=== PATIENT | female | born 1945 | race Caucasian/White ===

== ENCOUNTER 2022-11-18 15:21 | Inpatient (IN) ==
[2022-11-18] MEDS ORDERED: IOPAMIDOL 100 ML BOTTLE IV ONE (15:22)
[2022-11-18 16:06] LABS: POC INR 1.3 (0.8-1.2); POC Pro Time 15.2 (11.9-14.5)
[2022-11-18 16:15] LABS: POC Calcium, Ionized 1.15 (1.16-1.32); POC Creatinine 0.7 (0.6-1.2); POC Potassium 3.5 (3.3-5.1)
--- NOTE | 2022-11-18 16:24 | Emergency Department Note ---
HPI General Chief complaint: Stroke Symptoms Stated complaint: stroke sym. Time Seen by Provider: 11/18/22 15:24 Source: patient Mode of arrival: wheelchair Limitations: no limitations History of Present Illness HPI Narrative: Narrative: 77-year-old female presents the emergency department with friends who are the main historians for the patient. Apparently the patient when they went to check on her today noticed that she was, acting funny and talking funny seem like it was hard for her to get outward and she is very confused says she does have a hard time. They said this is very abnormal for her she lives at home alone takes care of herself normally they only check on her about every 3 to 4 days. Last time anyone has checked on her or been around her the friend today has been at least 3 days so really unsure of when her last known well was. Patient is denying any other symptoms otherwise there is been no falls or trauma or any other symptoms. She says she has been taking her medications. Just that she is feels "foggy" today. Related Data Home Medications Medication Instructions Recorded Confirmed aspirin 81 mg tablet,delayed 81 mg PO Q72 01/20/18 11/18/22 release gqzjefqhkmz-xov-qhvsnnfh-vit 1 cap PO BID 09/30/19 11/18/22 [id number] 500 mg-333 mg-5 mg capsule cyanocobalamin (vitamin B-12) 1,000 mcg IM QMONTH 10/23/22 10/23/22 1,000 mcg/mL injection solution hydrochlorothiazide 25 mg tablet 12.5 mg PO QDAY 11/18/22 11/18/22 propranolol 40 mg tablet 20 mg PO BID blood pressure and 11/18/22 11/18/22 essential tremor Previous Rx's Medication Instructions Recorded valacyclovir 1 gram tablet 1,000 mg PO TID 7 days #21 tabs 03/26/21 tramadol 50 mg tablet 50 mg PO .COMPLEX PRN pain #20 tabs 03/29/21 meclizine 25 mg tablet 25 mg PO BID PRN dizziness #30 tabs 10/18/21 clotrimazole-betamethasone 1 1 applic topical .COMPLEX 2 weeks 08/15/22 %-0.05 % topical cream #45 grams ezetimibe 10 mg tablet (Zetia) 10 mg PO QDAY #90 tabs 09/18/22 Allergies Allergy/AdvReac Type Severity Reaction Status Date / Time Sulfa (Sulfonamide Allergy Mild Rash Verified 11/18/22 15:26 Antibiotics) MITCH Inhibitors AdvReac Mild Cough Verified 11/18/22 15:26 fat emulsions [From Soyacal] AdvReac Verified 11/18/22 20:36 soybean AdvReac Verified 11/18/22 20:36 Kruymgd-RFQ-TzI Reductase AdvReac Verified 11/18/22 22:59 Inhibitor Review of Systems ROS ROS Narrative: Narrative: All systems ED: reviewed and negative except as stated. [facility] Narrative Patient History Narrative: Narrative: Medical/Surgical/Family History All Active Problems (Updated 11/18/22 @ 17:02 by Pa Richardson DO) Acute cerebrovascular accident (CVA) (Acute) Wrist pain, left (Acute) Fatigue (Acute) Migraine headache without aura (Acute) Tinea pedis (Acute) Vertigo (Acute) Painful urination (Acute) Urinary frequency (Acute) History of shingles (Acute) Shingles outbreak (Acute) Vaginitis (Acute) Toe pain, left (Acute) UTI (urinary tract infection) (Acute) Flank pain (Acute) Contusion of rib on left side (Acute) Chronic low back pain (Chronic) Cox splints (Chronic) HTN (hypertension) (Chronic) Anxiety (Chronic) Anxiety with depression (Chronic) Hyperlipidemia (Chronic) Pedal edema (Chronic) Seborrheic keratosis (Chronic) Family history of heart disease (Chronic) Dizziness (Chronic) 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) Physical exam (Chronic) Postmenopausal (Chronic) Screening for malignant neoplasm of colon (Chronic) Hand laceration (Chronic) Rash (Chronic) History of appendectomy (Chronic) History of hysterectomy (Chronic) Hypertension (Chronic) Medical History (Updated 11/18/22 @ 17:02 by Pa Richardson DO) Allergies Anxiety Anxiety with depression Arthritis Chronic low back pain Dermatochalasis of eyelid of left eye Dizziness Family history of heart disease History of IBS HTN (hypertension) Hx of candidiasis Hx of mammogram (~2014) Hx: UTI (urinary tract infection) Hyperlipidemia Osteopenia Pedal edema Physical exam Postmenopausal Screening for malignant neoplasm of colon Seborrheic keratosis Cox splints Visit for review of DEXA scan (~02/2014) Surgical History Hx of cataract surgery (~2014) Hx of colonoscopy (~2013) Hx of total hysterectomy (~1992) Family History Mother , Age 93 Hx of congenital heart disease HTN (hypertension) Stroke Colon cancer Father , Age 70 Hx of congenital heart disease Stroke HTN (hypertension) Glaucoma Diabetes Sister , Age 60 Myocardial infarction Breast cancer Social History Alcohol Intake Frequency: does not drink Substance Use: does not use Exam Narrative Narrative: Narrative: Vital signs noted General: Awake. Alert. No distress. Skin: Warm. Dry. No rash. HEENT: NCAT. PERRL. EOMI. No conjunctivitis. Membranes moist. Neck: Good ROM. No meningeal signs. No stridor. Cardiovascular: RRR. Respiratory: No respiratory distress. Gastrointestinal: Abdomen soft. No tenderness. No distention. Back: No deformity. No CVAT. Musculoskeletal: No tenderness. No swelling. No erythema. No edema. Good peripheral pulses x 4 Neurological: No focal neurological deficits observed. NIH Stroke Scale/Score (NIHSS) from [email or web address] on 11/18/2022 All calculations should be rechecked by clinician prior to use RESULT SUMMARY: 5 points NIH Stroke Scale INPUTS: 1A: Level of consciousness > 0 = Alert; keenly responsive 1B: Ask month and age > 1 = 1 question right 1C: 'Blink eyes' & 'squeeze hands' > 0 = Performs both tasks 2: Horizontal extraocular movements > 0 = Normal 3: Visual orzoco > 0 = No visual loss 4: Facial palsy > 0 = Normal symmetry 5A: Left arm motor drift > 0 = No drift for 10 seconds 5B: Right arm motor drift > 0 = No drift for 10 seconds 6A: Left leg motor drift > 0 = No drift for 5 seconds 6B: Right leg motor drift > 0 = No drift for 5 seconds 7: Limb Ataxia > 2 = Ataxia in 2 Limbs 8: Sensation > 0 = Normal; no sensory loss 9: Language/aphasia > 1 = Mild-moderate aphasia: some obvious changes, without significant limitation 10: Dysarthria > 1 = Mild-moderate dysarthria: slurring but can be understood 11: Extinction/inattention > 0 = No abnormality General Limitations: no limitations Course Vital Signs Vital signs: Vital Signs Temperature 97.0 F 11/18/22 15:21 Pulse Rate 82 11/18/22 15:21 Respiratory Rate 18 11/18/22 15:21 Blood Pressure 169/82 11/18/22 15:21 Pulse Oximetry (%) 96 11/18/22 15:21 Oxygen Delivery Method Room Air 11/18/22 15:21 Temperature 98.5 F 11/18/22 20:30 Pulse Rate 65 11/18/22 21:17 Respiratory Rate 20 11/18/22 21:17 Blood Pressure 106/90 11/18/22 21:17 Pulse Oximetry (%) 99 11/18/22 21:17 Oxygen Delivery Method Room Air 11/18/22 21:17 MDM MDM Narrative Medical decision making narrative: Narrative: Patient is alert and oriented able to follow commands. Patient does not meet criteria for code stroke is really unsure when her last known well as it would be about 3 days ago based on what we know. She has obvious stroke findings with some ataxia dysarthria and a little bit of aphasia. She does have NIH of 5. Because of her findings of actually more worried about a posterior stroke or possibly cerebellar stroke due to this I Jolanta go ahead and order an MRI. I was can order CT noncontrast first just to be sure there is no hemorrhage but MRI called and said they are able to get it done before they are able to get the CT done so went ahead and canceled the CT without contrast. Also got basic labs including CBC LFTs, chemistry and those are still pending at this time. Patient's blood sugar was normal. I did personally review and interpret the labs there is no acute findings based on the labs as they are unremarkable including CBC LFTs and chemistry. I did personally review and look over the MRI myself and I saw no signs of hemorrhage or major strokes based on my personal interpretation. The official radiology in terpretation came back and I did review that and that actually showed a small acute nonhemorrhagic infarct in the left occipital lobe as well as moderate diffuse white matter disease above the tentorium consistent with age-related ischemia or degeneration. Due to these findings I think patient does need to be admitted for further evaluation and more resources for her acute stroke. Again we do not know when she was last known well so we are unable to use tPA at this time. And this is not showing any signs of large vessel occlusion so I do not think neuro IR is warranted at this time. I spoke with the hospitalist Dr. Garcia who has agreed to admit the patient but he is requesting that we order a CTA head and neck to be sure there is no blockages which is reasonable and he will follow-up the results. Patient is admitted in fair condition ECG rhythm strip interpretation: ECG rhythm strip was personally interpreted by myself as normal sinus rhythm with no ectopy EKG: EKG done at 1545 interpreted by myself as a sinus rhythm, NH interval 176, QRS 95 At a rate of 73, QTc 458. No acute ST changes no acute T wave changes no other signs of ischemia. No signs of hypertrophy, heart strain, heart block. No WPW/Brugada/HOCM. Impression is normal sinus EKG with no ischemia Lab Data 11/18/22 16:00 Labs: Lab Results 11/18/22 11/18/22 11/18/22 Range/Units 16:00 16:00 16:00 WBC 6.0 (4.5-11.0) K/mcL RBC 4.54 (3.59-5.38) M/mcL Hgb 14.4 (11.2-15.7) g/dL Hct 42.3 (34.1-44.9) % POC Hct (36-48) MCV 93.2 (80.0-100.0) fL MCH 31.7 (26.0-34.0) pg MCHC 34.0 (31.0-36.0) g/dL RDW 14.0 (11.5-14.5) % Plt Count 250 (140-440) K/mcL MPV 10.1 (8.8-12.5) fL Immature Gran % (Auto) 0.3 (0.0-0.5) % Neut % (Auto) 62.4 (38.0-78.0) % Lymph % (Auto) 29.2 (15.5-49.0) % [place] % (Auto) 7.1 (1.0-12.0) % Eos % (Auto) 0.5 (0.0-7.0) % Baso % (Auto) 0.5 (0.0-2.0) % Lymph # (Auto) 1.76 (1.50-4.80) K/mcL [place] # (Auto) 0.43 (0.10-0.90) K/mcL Eos # (Auto) 0.03 (0.00-0.70) K/mcL Baso # (Auto) 0.03 (0.00-0.30) K/mcL Immature Gran # 0.02 (0.00-0.05) K/mcl Absolute Neutrophils 3.76 (1.80-8.00) K/mcL POC PT (11.9-14.5) POC INR (0.8-1.2) APTT 26.6 (20.0-37.0) sec POC Sodium (133-145) POC Potassium (3.3-5.1) POC Chloride (96-108) POC Total CO2 (22-30) POC BUN (6-20) POC Creatinine (0.6-1.2) POC Glucose (70-105) POC WB Ioniz Calcium (1.16-1.32) Total Bilirubin 0.7 (0.1-1.0) mg/dL Direct Bilirubin < 0.2 (0-0.3) mg/dL AST 29 (<32) U/L ALT 13 (<40) U/L Alkaline Phosphatase 65 (39-117) U/L Total Protein 6.3 (5.9-8.4) gm/dL Albumin 3.7 (3.2-5.2) gm/dL Globulin 2.6 (2.2-3.7) gm/dL Triglycerides (<150) mg/dL Cholesterol (<200) mg/dL LDL Cholesterol, Calc (<100) mg/dL Non-HDL Cholesterol (<130) mg/dL HDL Cholesterol (>40) mg/dL Urine Color Urine Appearance (Clear) Urine pH (5.0-9.0) Ur Specific [place] (1.000-1.035) Urine Protein (Negative) mg/dL Urine Glucose (UA) (Negative) mg/dL Urine Ketones (Negative) mg/dL Urine Occult Blood (Negative) mg/dL Urine Nitrate (Negative) Urine Bilirubin (Negative) mg/dL Urine Urobilinogen mg/dL Ur Leukocyte Esterase (Negative) /uL Urine RBC (0-3) /hpf Urine WBC (0-4) /hpf Ur Squamous Epith Cells (0-4) /hpf Urine Bacteria (0) /hpf Urine Mucus (None) /hpf Ur Culture Indicated? POC Troponin I (0.00-0.08) 11/18/22 11/18/22 11/18/22 Range/Units 16:00 16:01 16:02 WBC (4.5-11.0) K/mcL RBC (3.59-5.38) M/mcL Hgb (11.2-15.7) g/dL Hct (34.1-44.9) % POC Hct 43.0 (36-48) MCV (80.0-100.0) fL MCH (26.0-34.0) pg MCHC (31.0-36.0) g/dL RDW (11.5-14.5) % Plt Count (140-440) K/mcL MPV (8.8-12.5) fL Immature Gran % (Auto) (0.0-0.5) % Neut % (Auto) (38.0-78.0) % Lymph % (Auto) (15.5-49.0) % Victoria % (Auto) (1.0-12.0) % Eos % (Auto) (0.0-7.0) % Baso % (Auto) (0.0-2.0) % Lymph # (Auto) (1.50-4.80) K/mcL Victoria # (Auto) (0.10-0.90) K/mcL Eos # (Auto) (0.00-0.70) K/mcL Baso # (Auto) (0.00-0.30) K/mcL Immature Gran # (0.00-0.05) K/mcl Absolute Neutrophils (1.80-8.00) K/mcL POC PT 15.2 H (11.9-14.5) POC INR 1.3 H (0.8-1.2) APTT (20.0-37.0) sec POC Sodium 137 (133-145) POC Potassium 3.5 (3.3-5.1) POC Chloride 101 (96-108) POC Total CO2 26.0 (22-30) POC BUN 16 (6-20) POC Creatinine 0.7 (0.6-1.2) POC Glucose 126 H (70-105) POC WB Ioniz Calcium 1.15 L (1.16-1.32) Total Bilirubin (0.1-1.0) mg/dL Direct Bilirubin (0-0.3) mg/dL AST (<32) U/L ALT (<40) U/L Alkaline Phosphatase (39-117) U/L Total Protein (5.9-8.4) gm/dL Albumin (3.2-5.2) gm/dL Globulin (2.2-3.7) gm/dL Triglycerides 92 (<150) mg/dL Cholesterol 239 H (<200) mg/dL LDL Cholesterol, Calc 149 H (<100) mg/dL Non-HDL Cholesterol 167 H (<130) mg/dL HDL Cholesterol 72 (>40) mg/dL Urine Color Urine Appearance (Clear) Urine pH (5.0-9.0) Ur Specific [place] (1.000-1.035) Urine Protein (Negative) mg/dL Urine Glucose (UA) (Negative) mg/dL Urine Ketones (Negative) mg/dL Urine Occult Blood (Negative) mg/dL Urine Nitrate (Negative) Urine Bilirubin (Negative) mg/dL Urine Urobilinogen mg/dL Ur Leukocyte Esterase (Negative) /uL Urine RBC (0-3) /hpf Urine WBC (0-4) /hpf Ur Squamous Epith Cells (0-4) /hpf Urine Bacteria (0) /hpf Urine Mucus (None) /hpf Ur Culture Indicated? POC Troponin I (0.00-0.08) 11/18/22 11/18/22 Range/Units 16:04 16:40 WBC (4.5-11.0) K/mcL RBC (3.59-5.38) M/mcL Hgb (11.2-15.7) g/dL Hct (34.1-44.9) % POC Hct (36-48) MCV (80.0-100.0) fL MCH (26.0-34.0) pg MCHC (31.0-36.0) g/dL RDW (11.5-14.5) % Plt Count (140-440) K/mcL MPV (8.8-12.5) fL Immature Gran % (Auto) (0.0-0.5) % Neut % (Auto) (38.0-78.0) % Lymph % (Auto) (15.5-49.0) % Victoria % (Auto) (1.0-12.0) % Eos % (Auto) (0.0-7.0) % Baso % (Auto) (0.0-2.0) % Lymph # (Auto) (1.50-4.80) K/mcL [place] # (Auto) (0.10-0.90) K/mcL Eos # (Auto) (0.00-0.70) K/mcL Baso # (Auto) (0.00-0.30) K/mcL Immature Gran # (0.00-0.05) K/mcl Absolute Neutrophils (1.80-8.00) K/mcL POC PT (11.9-14.5) POC INR (0.8-1.2) APTT (20.0-37.0) sec POC Sodium (133-145) POC Potassium (3.3-5.1) POC Chloride (96-108) POC Total CO2 (22-30) POC BUN (6-20) POC Creatinine (0.6-1.2) POC Glucose (70-105) POC WB Ioniz Calcium (1.16-1.32) Total Bilirubin (0.1-1.0) mg/dL Direct Bilirubin (0-0.3) mg/dL AST (<32) U/L ALT (<40) U/L Alkaline Phosphatase (39-117) U/L Total Protein (5.9-8.4) gm/dL Albumin (3.2-5.2) gm/dL Globulin (2.2-3.7) gm/dL Triglycerides (<150) mg/dL Cholesterol (<200) mg/dL LDL Cholesterol, Calc (<100) mg/dL Non-HDL Cholesterol (<130) mg/dL HDL Cholesterol (>40) mg/dL Urine Color Yellow Urine Appearance Hazy A (Clear) Urine pH 8.0 (5.0-9.0) Ur Specific [place] 1.016 (1.000-1.035) Urine Protein Negative (Negative) mg/dL Urine Glucose (UA) Negative (Negative) mg/dL Urine Ketones 20 A (Negative) mg/dL Urine Occult Blood Negative (Negative) mg/dL Urine Nitrate Negative (Negative) Urine Bilirubin Negative (Negative) mg/dL Urine Urobilinogen Negative mg/dL Ur Leukocyte Esterase 25 A (Negative) /uL Urine RBC 0 (0-3) /hpf Urine WBC 40 H (0-4) /hpf Ur Squamous Epith Cells 0 (0-4) /hpf Urine Bacteria None (0) /hpf Urine Mucus Few A (None) /hpf Ur Culture Indicated? yes POC Troponin I < 0.02 (0.00-0.08) Discharge Plan Patient/Caregiver Discharge Instructions Pt seen by [facility] CUSTODIAN/PA only: No Clinical Impression: Acute cerebrovascular accident (CVA) Patient Disposition: Xfer As Inpt ([facility]) Discharge Date/Time: 11/18/22 19:58
--- NOTE | 2022-11-18 16:52 | Magnetic Resonance Report ---
History: Ataxia and stroke symptoms TECHNIQUE: Stroke protocol was performed. FINDINGS: There is a small subcortical acute infarct located posteriorly in the left occipital lobe. It measures 5 x 7 mm in size. This is located above the level of the visual cortex. No other infarct is present. There is no hemorrhage or mass effect. T2 FLAIR images reveal multiple high signal lesions in the centrum semiovale, predominantly involving the frontal and parietal lobes. There is also involvement in the mo radiata. They have no restricted diffusion or mass effect. There is normal signal in the basal ganglia, brainstem and cerebellum. No abnormal extra-axial fluid collection is present. Ventricles are normal in size. IMPRESSION: Small acute nonhemorrhagic infarct in the left occipital lobe. Moderate diffuse white matter disease above the tentorium, consistent with age-related ischemia or degeneration. Dr. Richardson was called with the report Interpreted and Authenticated by: Gerry Zayas 11/18/22
[2022-11-18 17:02] LABS: Basophils # (Auto) 0.03 K/mcL (0.00-0.30); Basophils % (Auto) 0.5 % (0.0-2.0); Eosinophils # (Auto) 0.03 K/mcL (0.00-0.70); Eosinophils % (Auto) 0.5 % (0.0-7.0); Hematocrit 42.3 % (34.1-44.9); Hemoglobin 14.4 g/dL (11.2-15.7); Lymphocytes # (Auto) 1.76 K/mcL (1.50-4.80); Lymphocytes % (Auto) 29.2 % (15.5-49.0); Mean Cell Volume 93.2 fL (80.0-100.0); Mean Platelet Volume 10.1 fL (8.8-12.5); Monocytes # (Auto) 0.43 K/mcL (0.10-0.90); Monocytes % (Auto) 7.1 % (1.0-12.0); Neutrophils % (Auto) 62.4 % (38.0-78.0); Platelet Count 250 K/mcL (140-440); RBC 4.54 M/mcL (3.59-5.38)
[2022-11-18] MEDS ORDERED: ASPIRIN 81 MG TAB.CHEW CHEWED ONE (17:14)
[2022-11-18 17:23] LABS: ALT/SGPT 13 U/L (<40); AST/SGOT 29 U/L (<32); Albumin 3.7 gm/dL (3.2-5.2); Alkaline Phosphatase 65 U/L (39-117); Bilirubin,Direct < 0.2 mg/dL (0-0.3); Bilirubin,Total 0.7 mg/dL (0.1-1.0); Globulin 2.6 gm/dL (2.2-3.7)
[2022-11-18 17:57] LABS: Appearance,Urine HAZY (Clear); Bilirubin,Urine Negative (Negative); Color,Urine YELLOW; Culture Indicated,Urine yes; Glucose,Urine (UA) Negative (Negative); Ketones,Urine 20 mg/dL (Negative); Leukocyte Esterase,Urine 25 /uL (Negative); Mucus,Urine FEW /hpf; Nitrate,Urine Negative (Negative); Protein,Urine Negative (Negative); Specific Gravity,Urine 1.016 (1.000-1.035); Urine Blood Negative (Negative); Urine RBC 0 /hpf (0-3); Urine Squamous Epithelial Cell 0 /hpf (0-4); Urine WBC 40 /hpf (0-4); Urobilinogen,Urine Negative
--- NOTE | 2022-11-18 18:21 | Cat Scan Report ---
History: Left occipital infarct, ataxia TECHNIQUE: Following injection of intravenous nonionic contrast, arterial phase images were acquired from the ascending aorta to the top of the head. Sagittal, coronal and 3-D reformatted images were created. The radiation exposure was limited using dose reduction technology. FINDINGS: NECK: The aorta is normal in caliber. There is small amount of plaque along the wall of the arch and plaque at the origin of the left subclavian artery. There is no stenosis of the subclavian. Common carotids are normal. Small amount of eccentric plaque is present in the proximal portions of both left and right internal carotids. These are not causing stenosis and there is no evidence of ulcerated plaque. The distal portions of both internal carotids are normal. The vertebral arteries are normal and symmetric. Lung apices are clear. The thyroid is heterogeneous with several small scattered nodules. Brain: The petrous and cavernous portions of both internal carotids are normal with no stenosis or plaque formation. Supraclinoid portions of both internal carotids are normal. The anterior and middle cerebral arteries are normal and symmetric. There is a small patent anterior communicating artery. I also has a small posterior communicating artery and the right side but not on the left. Peripheral branches of the anterior and middle cerebral arteries are normal. The vertebral arteries and basilar artery are normal in caliber. There is normal filling of the posterior inferior, anterior inferior and superior cerebellar arteries. Posterior cerebral arteries are normal and symmetric. There is no intracranial vascular occlusion, stenosis or evidence of vasculitis. No aneurysm or vascular malformation are present. The prior MRI revealed a small subcortical infarct in the left occipital lobe. No abnormal enhancement is present at this site. IMPRESSION: Normal CT angiogram of the head and neck Dr. Richardson was called with the report Interpreted and Authenticated by: Gerry Zayas 11/18/22
--- NOTE | 2022-11-18 18:28 | Internal Med History&Physical ---
HPI History of Present Illness Patient information: Note initiated : 11/18/22 at 6:26 pm Service Date, if different from initiated Date: [] Patient: Antonella Padilla a 77 y/o F admitted on for stroke sym.. Chief Complaint: [] History of present illness: Ms. Padilla is a 77 year old F Presents today with altered speech and confusion. Per friends her speech this morning seemed delayed and she did not make sense when she spoke. Patient able to report that the symptoms started this morning but unsure of what time, last known normal is unknown. Her friends typically see her every 3 to 4 days but had not seen her since September. She takes an aspirin every 3 days as precautionary because a family member of heart disease. Per the friends her expressive aphasia has improved dramatically since I saw her early afternoon. Patient states that she went to bed feeling fine but this morning she says she just could not function and says she was very weak but could not give any further description or details of how she felt. She denies any numbness tingling in any specific arm or leg. No chest pain shortness of breath. She has had mild headache but nothing significant She denies any visual deficits. CTA head and neck unremarkable. EKG sinus rhythm Review of Systems: Pertinent positives as above. Denies fever/chills/nausea/vomiting/chest or abdominal pain/cough/dyspnea/diarrhea. Remaining 10 point review of system reviewed negative PHYSICAL EXAM General: Alert, Awake, No acute Distress Eyes/N/T: EOMI, no scleral icterus, PERRL, visual orozco intact Head/Neck: neck supple, full ROM, normocephalic atraumatic CV: RRR, No murmurs, normal s1/s2 Pulm: Clear b/l, no wheezing/rhonchi/rales, no respiratory distress Abd: soft, nontender, +BS x4 Ext: no clubbing/cyanosis/edema, nontender Neuro: Alert, very mild expressive aphasia at this point, moves all extremities, sensations intact b/l upper/lower, follows commands, no pronator drift, symmetrical face, no slurring Psychiatric: Skin: warm/dry, normal color PFSH PFSH All Active Problems (Updated 11/18/22 @ 17:02 by Pa Richardson DO) Acute cerebrovascular accident (CVA) (Acute) Wrist pain, left (Acute) Fatigue (Acute) Migraine headache without aura (Acute) Tinea pedis (Acute) Vertigo (Acute) Painful urination (Acute) Urinary frequency (Acute) History of shingles (Acute) Shingles outbreak (Acute) Vaginitis (Acute) Toe pain, left (Acute) UTI (urinary tract infection) (Acute) Flank pain (Acute) Contusion of rib on left side (Acute) Chronic low back pain (Chronic) Cox splints (Chronic) HTN (hypertension) (Chronic) Anxiety (Chronic) Anxiety with depression (Chronic) Hyperlipidemia (Chronic) Pedal edema (Chronic) Seborrheic keratosis (Chronic) Family history of heart disease (Chronic) Dizziness (Chronic) 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) Physical exam (Chronic) Postmenopausal (Chronic) Screening for malignant neoplasm of colon (Chronic) Hand laceration (Chronic) Rash (Chronic) History of appendectomy (Chronic) History of hysterectomy (Chronic) Hypertension (Chronic) Medical History (Updated 11/18/22 @ 17:02 by Pa Richardson DO) Allergies Anxiety Anxiety with depression Arthritis Chronic low back pain Dermatochalasis of eyelid of left eye Dizziness Family history of heart disease History of IBS HTN (hypertension) Hx of candidiasis Hx of mammogram (~2014) Hx: UTI (urinary tract infection) Hyperlipidemia Osteopenia Pedal edema Physical exam Postmenopausal Screening for malignant neoplasm of colon Seborrheic keratosis Cox splints Visit for review of DEXA scan (~02/2014) Surgical History Hx of cataract surgery (~2014) Hx of colonoscopy (~2013) Hx of total hysterectomy (~1992) Family History Mother , Age 93 Hx of congenital heart disease HTN (hypertension) Stroke Colon cancer Father , Age 70 Hx of congenital heart disease Stroke HTN (hypertension) Glaucoma Diabetes Sister , Age 60 Myocardial infarction Breast cancer Social History marital status: occupational status: retired alcohol intake frequency: does not drink substance use type: does not use MEDS/ALLERGIES Home Medications and Allergies Home Medications Medication Instructions Recorded Confirmed Type aspirin 81 mg tablet,delayed 81 mg PO Q72 01/20/18 10/23/22 History release rxogjcydfoa-bjv-gtrmaxkp-vit 1 cap PO BID 09/30/19 10/23/22 History C-Mn-hrb21 500 mg-333 mg-5 mg capsule valacyclovir 1 gram tablet 1,000 mg PO TID 7 days #21 tabs 03/26/21 10/23/22 Rx tramadol 50 mg tablet 50 mg PO .COMPLEX PRN pain #20 tabs 03/29/21 10/23/22 Rx meclizine 25 mg tablet 25 mg PO BID PRN dizziness #30 tabs 10/18/21 10/23/22 Rx clotrimazole-betamethasone 1 1 applic topical .COMPLEX 2 weeks 08/15/22 10/23/22 Rx %-0.05 % topical cream #45 grams ezetimibe 10 mg tablet (Zetia) 10 mg PO QDAY #90 tabs 09/18/22 10/23/22 Rx propranolol 40 mg tablet See Rx Instructions .Route 09/18/22 10/23/22 Rx .COMPLEX #90 tabs cyanocobalamin (vitamin B-12) 1,000 mcg IM QMONTH 10/23/22 10/23/22 History 1,000 mcg/mL injection solution hydrochlorothiazide 25 mg tablet 25 mg PO QDAY #90 tabs 10/23/22 10/23/22 Rx Allergies Allergy/AdvReac Type Severity Reaction Status Date / Time Sulfa (Sulfonamide Allergy Mild Rash Verified 11/18/22 15:26 Antibiotics) MITCH Inhibitors AdvReac Mild Cough Verified 11/18/22 15:26 EXAM Constitutional Vitals: Temp Pulse Resp BP Pulse Ox O2 Del Method 97.0 F 67 16 168/88 99 Room Air 11/18/22 15:21 11/18/22 18:06 11/18/22 18:06 11/18/22 18:01 11/18/22 18:06 11/18/22 15:38 DATA Data Completed and Pending Labs: Labs from last 24 hours 11/18/22 11/18/22 11/18/22 16:40 16:04 16:02 WBC RBC Hgb Hct POC Hct 43.0 MCV MCH MCHC RDW Plt Count MPV Immature Gran % (Auto) Neut % (Auto) Lymph % (Auto) [place] % (Auto) Eos % (Auto) Baso % (Auto) Lymph # (Auto) [place] # (Auto) Eos # (Auto) Baso # (Auto) Immature Gran # Absolute Neutrophils POC PT POC INR APTT POC Sodium 137 POC Potassium 3.5 POC Chloride 101 POC Total CO2 26.0 POC BUN 16 POC Creatinine 0.7 POC Glucose 126 H POC WB Ioniz Calcium 1.15 L Total Bilirubin Direct Bilirubin AST ALT Alkaline Phosphatase Total Protein Albumin Globulin Urine Color Yellow Urine Appearance Hazy A Urine pH 8.0 Ur Specific [place] 1.016 Urine Protein Negative Urine Glucose (UA) Negative Urine Ketones 20 A Urine Occult Blood Negative Urine Nitrate Negative Urine Bilirubin Negative Urine Urobilinogen Negative Ur Leukocyte Esterase 25 A Urine RBC 0 Urine WBC 40 H Ur Squamous Epith Cells 0 Urine Bacteria None Urine Mucus Few A Ur Culture Indicated? yes POC Troponin I < 0.02 11/18/22 11/18/22 11/18/22 16:01 16:00 16:00 WBC RBC Hgb Hct POC Hct MCV MCH MCHC RDW Plt Count MPV Immature Gran % (Auto) Neut % (Auto) Lymph % (Auto) [place] % (Auto) Eos % (Auto) Baso % (Auto) Lymph # (Auto) [place] # (Auto) Eos # (Auto) Baso # (Auto) Immature Gran # Absolute Neutrophils POC PT 15.2 H POC INR 1.3 H APTT 26.6 POC Sodium POC Potassium POC Chloride POC Total CO2 POC BUN POC Creatinine POC Glucose POC WB Ioniz Calcium Total Bilirubin 0.7 Direct Bilirubin < 0.2 AST 29 ALT 13 Alkaline Phosphatase 65 Total Protein 6.3 Albumin 3.7 Globulin 2.6 Urine Color Urine Appearance Urine pH Ur Specific [place] Urine Protein Urine Glucose (UA) Urine Ketones Urine Occult Blood Urine Nitrate Urine Bilirubin Urine Urobilinogen Ur Leukocyte Esterase Urine RBC Urine WBC Ur Squamous Epith Cells Urine Bacteria Urine Mucus Ur Culture Indicated? POC Troponin I 11/18/22 16:00 WBC 6.0 RBC 4.54 Hgb 14.4 Hct 42.3 POC Hct MCV 93.2 MCH 31.7 MCHC 34.0 RDW 14.0 Plt Count 250 MPV 10.1 Immature Gran % (Auto) 0.3 Neut % (Auto) 62.4 Lymph % (Auto) 29.2 [place] % (Auto) 7.1 Eos % (Auto) 0.5 Baso % (Auto) 0.5 Lymph # (Auto) 1.76 [place] # (Auto) 0.43 Eos # (Auto) 0.03 Baso # (Auto) 0.03 Immature Gran # 0.02 Absolute Neutrophils 3.76 POC PT POC INR APTT POC Sodium POC Potassium POC Chloride POC Total CO2 POC BUN POC Creatinine POC Glucose POC WB Ioniz Calcium Total Bilirubin Direct Bilirubin AST ALT Alkaline Phosphatase Total Protein Albumin Globulin Urine Color Urine Appearance Urine pH Ur Specific [place] Urine Protein Urine Glucose (UA) Urine Ketones Urine Occult Blood Urine Nitrate Urine Bilirubin Urine Urobilinogen Ur Leukocyte Esterase Urine RBC Urine WBC Ur Squamous Epith Cells Urine Bacteria Urine Mucus Ur Culture Indicated? POC Troponin I A/P Narrative A/P Narrative: A: *Acute ischemic CVA (left occipital lobe): -CTA head/neck no significant stenosis *Generalized weakness/deconditioning: *HTN/HLD: *chronic LBP: *Anxiety: P: -DAPT/Statin -lipid panel -permissive HTN 24-48hrs, hold BP meds / diuretics for now -IVF -UA -echo pending -Neurochecks -Home medication reconciliation -PT/OT/ST -CM for placement -ppx: Lovenox /PPI Time Spent With Patient Time: Total time spent is greater than 50% in coordination of care (as documented) at patient's floor/unit and/or counseling patient: Initial: Total time with patient: 75 - 90 minutes QUALITY Stroke Symptom Onset Unknown: Yes
[2022-11-18] MEDS ORDERED: ACETAMINOPHEN 325 MG TABLET PO PRN (20:13)
[2022-11-18] MEDS ORDERED: SENNOSIDES 1 TABLET PO PRN (20:13)
[2022-11-18] MEDS ORDERED: POLYETHYLENE GLYCOL 3350 17 GM PACKET PO PRN (20:13)
[2022-11-18] MEDS ORDERED: POTASSIUM CHLORIDE 40 MEQ in DEXTROSE 5% IN WATER 500 ML IV PRN (20:13)
[2022-11-18] MEDS ORDERED: ONDANSETRON 4 MG/2 ML VIAL IV PRN (20:13)
[2022-11-18] MEDS ORDERED: 0.9 % SODIUM CHLORIDE 1,000 ML IV ONE (20:13)
[2022-11-18] MEDS ORDERED: POTASSIUM CHLORIDE 20 MEQ TABLET PO PRN ×2 (20:13)
[2022-11-18] MEDS ORDERED: MAGNESIUM SULFATE 2 GM/50 ML BAG IV PRN (20:13)
[2022-11-18] MEDS ORDERED: IPRATROPIUM/ALBUTEROL 3 ML AMPUL.NEB NEB PRN (20:13)
[2022-11-18 20:50] LABS: HDL Cholesterol 72 mg/dL (>40); LDL Cholesterol,Calculated 149 mg/dL (<100); Non-HDL Cholesterol 167 mg/dL (<130); Triglycerides 92 mg/dL (<150)
[2022-11-18] MEDS: DOCUSATE SODIUM 100 MG CAPSULE PO SCH (20:52)
[2022-11-18] MEDS: CLOPIDOGREL 75 MG TABLET PO SCH (20:52)
[2022-11-18] MEDS: 0.9 % SODIUM CHLORIDE 10 ML SYRINGE IV SCH (20:53)
[2022-11-18] MEDS ORDERED: ATORVASTATIN 40 MG TABLET ONE (22:47)
[2022-11-18] MEDS: ATORVASTATIN 40 MG TABLET PO SCH ×2 (22:48→22:55)
[2022-11-19] MEDS: 0.9 % SODIUM CHLORIDE 10 ML SYRINGE IV SCH ×3 (05:05→20:28)
--- NOTE | 2022-11-19 07:23 | Internal Med Progress Note ---
SUBJECTIVE Subjective Patient information: Note initiated : 11/19/22 at 7:16 am Service Date, if different from initiated Date: [] Patient: Antonella Padilla a 77 y/o F admitted on 11/18/22 for stroke . Chief Complaint: [] Interval history: History of present illness: Ms. Padilla is a 77 year old F Presents today with altered speech and confusion. Per friends her speech this morning seemed delayed and she did not make sense when she spoke. Patient able to report that the symptoms started this morning but unsure of what time, last known normal is unknown. Her friends typically see her every 3 to 4 days but had not seen her since September. She takes an aspirin every 3 days as precautionary because a family member of heart disease. Per the friends her expressive aphasia has improved dramatically since I saw her early afternoon. Patient states that she went to bed feeling fine but this morning she says she just could not function and says she was very weak but could not give any further description or details of how she felt. She denies any numbness tingling in any specific arm or leg. No chest pain shortness of breath. She h as had mild headache but nothing significant She denies any visual deficits. CTA head and neck unremarkable. EKG sinus rhythm 11/19 Patient feeling much better today. She says her mind is much more clear almost baseline. Friends at bedside. We will work with PT today and awaiting echo results. Patient refused statin medications and she had a bad reaction to it in the past. We will start her Zetia. Review of Systems: Pertinent positives as above. Denies fever/chills/nausea/vomiting/chest or abdominal pain/cough/dyspnea/diarrhea. PHYSICAL EXAM General: Alert, Awake, No acute Distress Eyes/N/T: EOMI, no scleral icterus, Head/Neck: neck supple, full ROM, CV: RRR, No murmurs, Pulm: Clear b/l, no wheezing/rhonchi/rales, no respiratory distress Abd: soft, nontender, +BS x4 Ext: no clubbing/cyanosis/edema, nontender Neuro: Alert, moves all extremities, sensations intact b/l upper/lower, follows commands, no pronator drift, symmetrical face, no slurring Psychiatric: Skin: warm/dry, normal color Constitutional Vitals: Vital Signs Temp Pulse Resp BP Pulse Ox O2 Del Method 98.7 F 67 14 129/63 95 Room Air 11/19/22 04:01 11/19/22 04:01 11/19/22 04:01 11/19/22 04:01 11/19/22 04:01 11/19/22 04:01 Period Temp Pulse Resp BP Sys/Jennings Pulse Ox O2 Del Method O2 Flow Rate Last 24 Hr 97.0 F-98.8 F 65-82 10-20 106-188/59-105 95-99 Room Air-Room Air Intake and Output 11/18/22 11/19/22 11/19/22 19:59 03:59 11:59 Intake Total 360 Output Total 650 Balance -290 Weight 63.049 kg 62.823 kg Intake & Output: Intake & Output 11/18/22 11/19/22 11/19/22 19:59 03:59 11:59 Intake Total 360 Output Total 650 Balance -290 Weight 63.049 kg 62.823 kg Intake: Oral 360 Output: Void Amount 650 Other: Urine Appearance Clear Urine Color Yellow Urine Odor Normal OBJ DATA Labs 11/18/22 16:00 Labs: Abnormal Lab Results 11/18/22 11/18/22 11/18/22 16:40 16:02 16:01 POC PT 15.2 H POC INR 1.3 H POC Glucose 126 H POC WB Ioniz Calcium 1.15 L Cholesterol LDL Cholesterol, Calc Non-HDL Cholesterol Urine Appearance Hazy A Urine Ketones 20 A Ur Leukocyte Esterase 25 A Urine WBC 40 H Urine Mucus Few A 11/18/22 16:00 POC PT POC INR POC Glucose POC WB Ioniz Calcium Cholesterol 239 H LDL Cholesterol, Calc 149 H Non-HDL Cholesterol 167 H Urine Appearance Urine Ketones Ur Leukocyte Esterase Urine WBC Urine Mucus Meds: Medications Acetaminophen (Acetaminophen 325 Mg Tablet) 650 mg PO Q6HP PRN; Protocol PRN Reason: Per Pain Protocol/Fever > 101 Albuterol/Ipratropium (Ipratropium/Albuterol 3 Ml Ampul.Neb) 3 ml NEB Q4HP PRN PRN Reason: Shortness Of Breath Aspirin (Aspirin 325 Mg Enteric Coated Tablet) 81 mg PO DAILY [facility] Atorvastatin Calcium (Atorvastatin 40 Mg Tablet) 80 mg PO HS [facility] Last Admin: 11/18/22 22:55 Dose: Not Given Clopidogrel Bisulfate (Clopidogrel 75 Mg Tablet) 75 mg PO DAILY [facility] Last Admin: 11/18/22 20:52 Dose: 75 mg Docusate Sodium (Docusate Sodium 100 Mg Capsule) 100 mg PO BID [facility] Last Admin: 11/18/22 20:52 Dose: Not Given Enoxaparin Sodium (Enoxaparin 40 Mg/0.4 Ml Syringe) 40 mg SQ DAILY [facility] Potassium Chloride 40 meq/ (Dextrose) 520 mls @ 130 mls/hr IV UD PRN PRN Reason: Potassium < 3 Magnesium Sulfate (Magnesium Sulfate) 2 gm in 50 mls @ 50 mls/hr IV UD PRN PRN Reason: Magnesium </= 1.6 Ondansetron HCl (Ondansetron 4 Mg/2 Ml Vial) 4 mg IV Q4HP PRN PRN Reason: Nausea And Vomiting Pantoprazole Sodium (Pantoprazole 40 Mg Tablet) 40 mg PO QAMAC [facility] Polyethylene Glycol (Polyethylene Glycol 3350 17 Gm Packet) 17 gm PO DAILYP PRN PRN Reason: Constipation Potassium Chloride (Potassium Chloride 20 Meq Tablet) 40 meq PO UD PRN PRN Reason: Potssium is 3-3.5 Potassium Chloride (Potassium Chloride 20 Meq Tablet) 40 meq PO UD PRN PRN Reason: Potassium < 3 Senna (Sennosides 1 Tablet) 2 tab PO DAILYP PRN PRN Reason: Constipation Sodium Chloride (0.9 % Sodium Chloride 10 Ml Syringe) 10 ml IV Q8 [facility] Last Admin: 11/19/22 05:05 Dose: 10 ml A/P Narrative A/P Narrative: A: *Acute ischemic CVA (left occipital lobe above visual cortex): with expressive aphasia, improved -CTA head/neck no significant stenosis *Generalized weakness/deconditioning: *?UTI: pending UC *HTN/HLD: *Essential Tremor: *chronic LBP: *Anxiety: P: -DAPT, Statin (refused statin stating bad reaction in past, added to allergy list, start home zetia) -permissive HTN 24-48hrs, hold BP meds / diuretics for now -IVF finish -UC pending -echo pending -Neurochecks -PT(awaiting eval)/OT -CM for placement -ppx: Lovenox /PPI Time Spent With Patient Time: Total time spent is greater than 50% in coordination of care (as documented) at patient's floor/unit and/or counseling patient: Subsequent: Total time with patient: 50 - 65 Minutes QUALITY Stroke Symptom Onset Unknown: Yes
[2022-11-19] MEDS: ENOXAPARIN 40 MG/0.4 ML SYRINGE SQ SCH (07:49)
[2022-11-19] MEDS: PANTOPRAZOLE 40 MG TABLET PO SCH (07:49)
[2022-11-19] MEDS: CLOPIDOGREL 75 MG TABLET PO SCH (07:49)
[2022-11-19] MEDS: DOCUSATE SODIUM 100 MG CAPSULE PO SCH ×2 (07:49→20:28)
[2022-11-19] MEDS: ASPIRIN 81 MG TAB.CHEW CHEWED SCH (07:54)
[2022-11-19] MEDS ORDERED: ASPIRIN 325 MG ENTERIC COATED TABLET PO SCH (09:00)
[2022-11-19] MEDS: EZETIMIBE 10 MG TABLET PO SCH (11:13)
--- NOTE | 2022-11-19 11:45 | EKG ---
[facility] Test Date: 2022-11-18 Pat Name: Antonella Padilla Department: ED Room: Gender: Female [employer]: AW : 1945 Requested By: Pa Richardson Order Number: [id number] Reading MD: Armando Mary Measurements Intervals [place] Rate: 73 P: 57 SC: 176 QRS: 40 QRSD: 95 T: 63 QT: 416 QTc: 458 Interpretive Statements Sinus rhythm Electronically Signed On 11-19-2022 11:45:21 PDT by Armando Mary /store/[email or web address]/[id number]
--- NOTE | 2022-11-19 14:56 | Discharge Summary ---
Discharge Provider Provider IMPORTANT FOLLOW-UP INFORMATION FOR PCP: Patient information: Note initiated : 11/19/22 at 2:54 pm Service Date, if different from initiated Date: [] Patient: Antonella Padilla a 77 y/o F admitted on 11/18/22 for stroke . Chief Complaint: [] Date of admission: 11/18/22 19:58 Discharge date: 11/20/22 Primary care physician: ISAÍAS Yanes Consults: 11/18/22 16:42 Consult to Physician [CONS] Stat Comment: Consulting Provider: Sigifredo Garcia Reason For Exam: Physician to Consult COURSE Hospital Course Hospital course: History of present illness: Ms. Padilla is a 77 year old F Presents today with altered speech and confusion. Per friends her speech this morning seemed delayed and she did not make sense when she spoke. Patient able to report that the symptoms started this morning but unsure of what time, last known normal is unknown. Her friends typically see her every 3 to 4 days but had not seen her since September. She takes an aspirin every 3 days as precautionary because a family member of heart disease. Per the friends her expressive aphasia has improved dramatically since I saw her early afternoon. Patient states that she went to bed feeling fine but this morning she says she just could not function and says she was very weak but could not give any further description or details of how she felt. She denies any numbness tingling in any specific arm or leg. No chest pain shortness of breath. She has had mild headache but nothing significant She denies any visual deficits. CTA head and neck unremarkable. EKG sinus rhythm 11/19 Patient feeling much better today. She says her mind is much more clear almost baseline. Friends at bedside. We will work with PT today and awaiting echo results. Patient refused statin medications and she had a bad reaction to it in the past. We will start her Zetia. 11/20 No overnight event or new complaints. Echo with no this. Patient neurologically stable stable for discharge. f/u urinc cx. A: *Acute ischemic CVA (left occipital lobe above visual cortex): with expressive aphasia, resolved -CTA head/neck no significant stenosis *Generalized weakness/deconditioning: *?UTI: pending UC *HTN/HLD: *Essential Tremor: *chronic LBP: *Anxiety: P: -DAPT, intolerant to statins, cont home zetia -UC pending Discharge diagnosis: Acute ischemic stroke generalized weakness Secondary discharge diagnosis: Hypertension hyperlipidemia chronic low back pain anxiety, r/o UTI. Time Spent with Patient Time attestation: Total time spent providing and/or coordinating discharge services: Time spent: Greater than 30 minutes EXAM Constitutional Vitals: Temp Pulse Resp BP Pulse Ox O2 Del Method 98.3 F 73 19 147/75 94 Room Air 11/19/22 08:01 11/19/22 12:00 11/19/22 12:00 11/19/22 12:00 11/19/22 12:00 11/19/22 12:00 Discharge Data Data Completed and Pending Labs on day of discharge: Labs from last 24 hours 11/18/22 11/18/22 11/18/22 16:40 16:04 16:02 WBC RBC Hgb Hct POC Hct 43.0 MCV MCH MCHC RDW Plt Count MPV Immature Gran % (Auto) Neut % (Auto) Lymph % (Auto) [place] % (Auto) Eos % (Auto) Baso % (Auto) Lymph # (Auto) [place] # (Auto) Eos # (Auto) Baso # (Auto) Immature Gran # Absolute Neutrophils POC PT POC INR APTT POC Sodium 137 POC Potassium 3.5 POC Chloride 101 POC Total CO2 26.0 POC BUN 16 POC Creatinine 0.7 POC Glucose 126 H POC WB Ioniz Calcium 1.15 L Total Bilirubin Direct Bilirubin AST ALT Alkaline Phosphatase Total Protein Albumin Globulin Triglycerides Cholesterol LDL Cholesterol, Calc Non-HDL Cholesterol HDL Cholesterol Urine Color Yellow Urine Appearance Hazy A Urine pH 8.0 Ur Specific [place] 1.016 Urine Protein Negative Urine Glucose (UA) Negative Urine Ketones 20 A Urine Occult Blood Negative Urine Nitrate Negative Urine Bilirubin Negative Urine Urobilinogen Negative Ur Leukocyte Esterase 25 A Urine RBC 0 Urine WBC 40 H Ur Squamous Epith Cells 0 Urine Bacteria None Urine Mucus Few A Ur Culture Indicated? yes POC Troponin I < 0.02 11/18/22 11/18/22 11/18/22 16:01 16:00 16:00 WBC RBC Hgb Hct POC Hct MCV MCH MCHC RDW Plt Count MPV Immature Gran % (Auto) Neut % (Auto) Lymph % (Auto) [place] % (Auto) Eos % (Auto) Baso % (Auto) Lymph # (Auto) [place] # (Auto) Eos # (Auto) Baso # (Auto) Immature Gran # Absolute Neutrophils POC PT 15.2 H POC INR 1.3 H APTT POC Sodium POC Potassium POC Chloride POC Total CO2 POC BUN POC Creatinine POC Glucose POC WB Ioniz Calcium Total Bilirubin 0.7 Direct Bilirubin < 0.2 AST 29 ALT 13 Alkaline Phosphatase 65 Total Protein 6.3 Albumin 3.7 Globulin 2.6 Triglycerides 92 Cholesterol 239 H LDL Cholesterol, Calc 149 H Non-HDL Cholesterol 167 H HDL Cholesterol 72 Urine Color Urine Appearance Urine pH Ur Specific [place] Urine Protein Urine Glucose (UA) Urine Ketones Urine Occult Blood Urine Nitrate Urine Bilirubin Urine Urobilinogen Ur Leukocyte Esterase Urine RBC Urine WBC Ur Squamous Epith Cells Urine Bacteria Urine Mucus Ur Culture Indicated? POC Troponin I 11/18/22 11/18/22 16:00 16:00 WBC 6.0 RBC 4.54 Hgb 14.4 Hct 42.3 POC Hct MCV 93.2 MCH 31.7 MCHC 34.0 RDW 14.0 Plt Count 250 MPV 10.1 Immature Gran % (Auto) 0.3 Neut % (Auto) 62.4 Lymph % (Auto) 29.2 [place] % (Auto) 7.1 Eos % (Auto) 0.5 Baso % (Auto) 0.5 Lymph # (Auto) 1.76 [place] # (Auto) 0.43 Eos # (Auto) 0.03 Baso # (Auto) 0.03 Immature Gran # 0.02 Absolute Neutrophils 3.76 POC PT POC INR APTT 26.6 POC Sodium POC Potassium POC Chloride POC Total CO2 POC BUN POC Creatinine POC Glucose POC WB Ioniz Calcium Total Bilirubin Direct Bilirubin AST ALT Alkaline Phosphatase Total Protein Albumin Globulin Triglycerides Cholesterol LDL Cholesterol, Calc Non-HDL Cholesterol HDL Cholesterol Urine Color Urine Appearance Urine pH Ur Specific [place] Urine Protein Urine Glucose (UA) Urine Ketones Urine Occult Blood Urine Nitrate Urine Bilirubin Urine Urobilinogen Ur Leukocyte Esterase Urine RBC Urine WBC Ur Squamous Epith Cells Urine Bacteria Urine Mucus Ur Culture Indicated? POC Troponin I Preliminary micro results at discharge 11/18/22 16:40 Urine Culture - Preliminary Urine - Clean Void [place] Discharge Plan Patient/Caregiver Discharge Instructions Activity: increase activity as tolerated Diet: Low Fat Instructions: Aspirin (By mouth), Clopidogrel (By mouth), Low Fat Diet (GEN), Ischemic Stroke (GEN) Activity Restrictions/Additional Instructions: Increase activity as tolerated, continue with a low fat diet. See information included in this packet. Continue with your previously scheduled primary care physician appointment. [facility] will contact you to schedule an appointment for rehab Your prescriptions have been electronically sent to the [facility]. This discharge packet is provided to you to help keep you informed about your care. We want to ensure you get everything you need when you go home. You will also be receiving a call from us in a few days to follow up with you and see how you are doing since your discharge. This gives us a chance to listen to any concerns you maybe experiencing since you were discharged or any additional needs you may have, as well as providing us feedback on your care experience. We strive to always provide excellent care and thank you for your feedback and for choosing [facility]. Prescriptions: New clopidogrel 75 mg Tablet 75 mg PO DAILY Qty: 26 0RF nitrofurantoin monohyd/m-cryst [Macrobid] 100 mg capsule 100 mg PO Q12H 5 Days Qty: 10 0RF Rx Instructions: must administer with a meal/food Continued jdkjio-hnv-uvegnsig-C-Mn-hrb21 500-333-5 mg capsule 1 cap PO BID ezetimibe [Zetia] 10 mg tablet 10 mg PO QDAY Qty: 90 1RF cyanocobalamin (vitamin B-12) 1,000 mcg/mL solution 1,000 mcg IM QMONTH propranolol 40 mg tablet 40 mg PO TID hydrochlorothiazide 25 mg tablet 25 mg PO QDAY Rx Instructions: with breakfast latanoprost 0.005 % drops 1 drp ophthalmic (eye) HS Patient Comments: [NO ORIGINAL SIG] Rx Instructions: 1 drop right eye at HS Changed aspirin 81 mg tablet,delayed release (DR/EC) 81 mg PO DAILY Qty: 60 0RF Follow Up Plan Follow up with: Phu Son ARNP [Primary Care Provider] - 11/21/22 9:30 am (Follow up with PCP at previously scheduled appointment) Patient Disposition: Home, Self-Care Overall status at discharge: patient is progressing back to baseline Discharge Orders: Discharge Order (Routine); Ordered 11/20/22 Ordered By: Sigifredo Garcia
[2022-11-19] MEDS: ATORVASTATIN 40 MG TABLET PO SCH (20:28)
[2022-11-19] MEDS ORDERED: LATANOPROST OPHTH DROPS 2.5ML BOTTLE OD SCH (21:00)
[2022-11-20] MEDS: 0.9 % SODIUM CHLORIDE 10 ML SYRINGE IV SCH (05:36)
[2022-11-20] MEDS: PANTOPRAZOLE 40 MG TABLET PO SCH (06:10)
[2022-11-20] MEDS: DOCUSATE SODIUM 100 MG CAPSULE PO SCH (07:54)
[2022-11-20] MEDS: ASPIRIN 81 MG TAB.CHEW CHEWED SCH (08:11)
[2022-11-20] MEDS: CLOPIDOGREL 75 MG TABLET PO SCH (08:11)
[2022-11-20] MEDS: EZETIMIBE 10 MG TABLET PO SCH (08:11)
[2022-11-20] MEDS: ENOXAPARIN 40 MG/0.4 ML SYRINGE SQ SCH (08:11)
[2022-11-20] MEDS ORDERED: NITROFURANTOIN SR 100 MG CAPSULE PO ONE (10:58)
== END 2022-11-20 11:45 | disposition home or self-care (01) | DRG 65 ==
LOC: ED 15:21 → ICU 19:58
PROVIDERS: ADMIT Internal Medicine; ATTEND Internal Medicine

== ENCOUNTER 2023-07-23 18:02 | Observation (INO) ==
[2023-07-23] MEDS ORDERED: IOPAMIDOL 100 ML BOTTLE IV ONE (18:03)
[2023-07-23 18:28] LABS: POC Calcium, Ionized 1.14 (1.16-1.32); POC Creatinine 0.6 (0.6-1.2); POC Potassium 3.3 (3.3-5.1)
[2023-07-23 18:40] LABS: Basophils # (Auto) 0.03 K/mcL (0.00-0.30); Basophils % (Auto) 0.5 % (0.0-2.0); Eosinophils # (Auto) 0.03 K/mcL (0.00-0.70); Eosinophils % (Auto) 0.5 % (0.0-7.0); Hematocrit 41.7 % (34.1-44.9); Hemoglobin 14.1 g/dL (11.2-15.7); Lymphocytes # (Auto) 2.19 K/mcL (1.50-4.80); Lymphocytes % (Auto) 33.7 % (15.5-49.0); Mean Cell Volume 92.9 fL (80.0-100.0); Mean Corpuscular HGB Conc 33.8 g/dL (31.0-36.0); Mean Platelet Volume 9.2 fL (8.8-12.5); Monocytes # (Auto) 0.52 K/mcL (0.10-0.90); Neutrophils % (Auto) 57.1 % (38.0-78.0); Platelet Count 260 K/mcL (140-440); RBC 4.49 M/mcL (3.59-5.38); Red Cell Distribution Width 14.4 % (11.5-14.5); WBC 6.5 K/mcL (4.5-11.0)
[2023-07-23 18:57] LABS: ALT/SGPT 14 U/L (<40); AST/SGOT 26 U/L (<32); Albumin 3.9 gm/dL (3.2-5.2); Alkaline Phosphatase 52 U/L (39-117); Bilirubin,Direct < 0.2 mg/dL (0-0.3); Bilirubin,Total 0.9 mg/dL (0.1-1.0); Globulin 2.7 gm/dL (2.2-3.7)
[2023-07-23 18:59] LABS: ALT/SGPT 14 U/L (<40); AST/SGOT 27 U/L (<32); Albumin 3.9 gm/dL (3.2-5.2); Albumin/Globulin Ratio 1.5 (1.0-2.3); Alkaline Phosphatase 53 U/L (39-117); Anion Gap 12.2 (8.0-16.0); Bilirubin,Total 0.9 mg/dL (0.1-1.0); Blood Urea Nitrogen 16 mg/dL (8-23); Calcium 8.8 mg/dL (8.6-10.4); Carbon Dioxide 22 mmol/L (22-30); Chloride 101 mmol/L (96-108); Globulin 2.7 gm/dL (2.2-3.7); Glomerular Filtration Rate 83; Glucose 122 mg/dL (70-105)
[2023-07-23] MEDS ORDERED: ACETAMINOPHEN 325 MG TABLET PO ONE (19:07)
[2023-07-23 19:09] LABS: Partial Thromboplastin Time 25.9 sec (20.0-37.0); Prothrombin Time 13.4 sec (11.9-14.5)
[2023-07-23 19:57] LABS: Appearance,Urine Clear (Clear); Bilirubin,Urine Negative (Negative); Color,Urine Yellow; Culture Indicated,Urine Yes; Glucose,Urine (UA) Negative (Negative); Ketones,Urine 15(1+) mg/dL (Negative); Leukocyte Esterase,Urine 1+(Small) /uL (Negative); Nitrate,Urine Negative (Negative); PH,Urine 8.5 (5.0-9.0); Protein,Urine Negative (Negative); Urine Blood Negative ery/mcL (Negative); Urine RBC 1 /hpf (0-3); Urine Squamous Epithelial Cell 2 /hpf (0-4); Urine WBC 13 /hpf (0-4); Urobilinogen,Urine Normal
[2023-07-23] MEDS ORDERED: ACETAMINOPHEN 325 MG TABLET PO PRN (21:41)
[2023-07-23] MEDS ORDERED: ONDANSETRON 4 MG/2 ML VIAL IV PRN (21:41)
[2023-07-23] MEDS: SENNOSIDES 1 TABLET PO SCH (22:00)
[2023-07-23] MEDS: 0.9 % SODIUM CHLORIDE 10 ML SYRINGE IV SCH (22:45)
[2023-07-24] MEDS: 0.9 % SODIUM CHLORIDE 10 ML SYRINGE IV SCH ×3 (06:15→20:11)
[2023-07-24] MEDS: ENOXAPARIN 40 MG/0.4 ML SYRINGE SQ SCH (08:32)
[2023-07-24] MEDS ORDERED: ASPIRIN 81 MG TAB.CHEW CHEWED SCH (09:00)
[2023-07-24 09:41] LABS: HDL Cholesterol 57 mg/dL (>40); LDL Cholesterol,Calculated 139 mg/dL (<100); Non-HDL Cholesterol 154 mg/dL (<130); Triglycerides 77 mg/dL (<150)
[2023-07-24 09:43] LABS: Estimated Average Glucose(eAG) 111 mg/dL; Hemoglobin A1C 5.5 % Hgb (4.0-6.0)
[2023-07-24] MEDS: SENNOSIDES 1 TABLET PO SCH (20:10)
[2023-07-24] MEDS: TIMOLOL 0.5% OPHTH DROPS BOTTLE 5ML OU SCH (20:11)
[2023-07-25] MEDS: 0.9 % SODIUM CHLORIDE 10 ML SYRINGE IV SCH ×2 (05:03→13:06)
[2023-07-25] MEDS: ENOXAPARIN 40 MG/0.4 ML SYRINGE SQ SCH (08:08)
[2023-07-25] MEDS: TIMOLOL 0.5% OPHTH DROPS BOTTLE 5ML OU SCH (08:08)
[2023-07-25] MEDS ORDERED: CLOPIDOGREL 75 MG TABLET PO SCH (09:00)
[2023-07-25] MEDS ORDERED: amLODIPine 5 MG TABLET PO SCH (09:00)
[2023-07-25] MEDS ORDERED: EZETIMIBE 10 MG TABLET PO SCH (09:00)
[2023-07-25] MEDS ORDERED: PROPRANOLOL 40 MG TABLET PO SCH (09:00)
== END 2023-07-25 13:24 | disposition home or self-care (01) ==
LOC: ED 18:02 → MEDSUR 18:02
PROVIDERS: ADMIT Internal Medicine; ATTEND Internal Medicine